=== PATIENT | male | born 1945 | race Caucasian/White ===

== ENCOUNTER → 2018-10-18 | Outpatient (CLI) | payer OTHER ==
[~2018-10-18] MED LIST: ASPI81TA50 PO; ATOR20TA58 PO; CITA10TA4 PO; LISI1TAB5 PO; OMEP20CA10 PO; TAMS0.4C97 PO
--- NOTE | 2018-10-18 22:24 | PAIN ---
DATE OF SERVICE: 10/18/2018 INITIAL CONSULTATION FOR PAIN CLINIC CHIEF COMPLAINT: Low back and right lower extremity pain. HISTORY OF PRESENT ILLNESS: This is a 73-year-old male who presents with history of pain in low back, right leg for about 4 weeks, increasing. He has had some low back pain over the years, , but has not been this severe, has not been radiating down into his right leg. The patient reports he was at a local store, was kneeling down and has some difficulty trying to get back up and he has severe pain in the back and into the leg at that time and had to have assistance from 4 people to get him up and back to his feet. The patient reports that it has never happened before, has not happened since that time, is about a month ago. The patient reports the pain now is decreased to some extent from that point. At that point, he was unable to bear weight on it. The patient reports he has pain now that is sharp and shooting, changes during the day, worse with activity, walking, standing for prolonged periods, better with sitting or lying down, is a burning, aching pain in the low back and radiating to the leg and the posterior gluteus, lateral thigh, anterior thigh, medial thigh, and into the posterior thigh as well on the right side only. The patient reports he had a Medrol Dosepak, which did not help significantly. He reports it awakes him from sleep at night occasionally, not every night, does not affect his bowel or bladder control significantly, does not need any assistance with walking, but does affect his ability to walk and he is favoring his right lower extremity. He reports some significant fatigability with activities, better with lying down or sitting, being or riding in the car for more than 20-30 minutes can exacerbate the pain also. The patient did have an MRI scan of the lumbar spine showing some multilevel degenerative disk changes, most significant at L3-L4 with asymmetric bulging greater to the right with a subtle annular fissure in the right paramedian location, mild neural foraminal narrowing seen greater on the right. Also, L4-L5 shows slight bulge with moderate facet degenerative changes noted without stenosis. The patient rates his disability rating from 0-10, 10 being the worst, is a 3 with family home responsibilities, 1 with recreation and social activity, 7 with occupation, 4 with sexual behaviors, 0 with self-care and 4 with life support activities. PAST MEDICAL HISTORY: Significant for hypertension, gastroesophageal reflux, arthritis, anxiety, depression, benign prostatic hypertrophy, sleep apnea, quit smoking many years ago. PREVIOUS SURGERY: Includes cholecystectomy, tonsillectomy, right temporal artery biopsy. CURRENT MEDICATIONS: Include atorvastatin, tamsulosin, lisinopril, citalopram, daily baby aspirin. ALLERGIES: The patient has no known drug allergies. FAMILY HISTORY: Significant for no major medical problems or conditions that he is aware of. SOCIAL HISTORY: The patient drinks alcohol about once a month. Quit smoking many years ago. Does not use any illegal, illicit or recreational drugs. 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 REVIEW OF SYSTEMS: The patient's review of systems is positive for those items mentioned in history of present illness. All systems were reviewed and otherwise negative. It is complete, full and well documented on the patient's chart. PHYSICAL EXAMINATION: VITAL SIGNS: The patient's blood pressure is 151/93, pulse 67, respirations 16, temperature is 98.6 degrees Fahrenheit, height is 5 feet 7 inches, weight is 238 pounds. GENERAL: The patient is awake, alert, oriented, appropriate, has a very pleasant demeanor. HEENT: Shows normocephalic, atraumatic. Extraocular movements are intact and symmetrical. Oral cavity shows mucous membranes moist and pink. Dentition is intact. NECK: Shows anterior throat supple without palpable lymphadenopathy noted. Swallow reflex is symmetrical. CHEST: Shows normal with inspection. Breath sounds are clear to auscultation bilaterally. HEART: Shows S1, S2 clear. No murmurs auscultated. ABDOMEN: Obese: Soft, nontender, nondistended. No palpable organomegaly is noted. No rebound or guarding demonstrated. MUSCULOSKELETAL: Back shows spine grossly in the midline with some moderate tenderness and some mild flattening of the lumbar lordotic curvature. Paraspinous musculature shows symmetrical on inspection; with palpation shows some moderate tenderness diffusely bilaterally, but only diffusely without significant radiation. The patient has good rotational motion of lumbar spine, both laterally as well as forward flexion, rearward extension without exacerbation of pain. The patient's lower extremities show deep tendon reflexes at 2+ in the patellar, 1+ tendo-calcaneus tendons. Motor exam is strong with 5/5 dorsiflexion, extension, quadriceps and hamstring flexion approximately 4 on a scale of 5 on the right, but 5/5 on the left. Peripheral pulses are 1+ posterior tibia. No peripheral edema is noted. No clubbing or cyanosis. Lower extremities are warm and dry to touch, equal in color and appearance. Straight leg raise noted to be negative for reproduction of radicular symptoms bilaterally. Gaenslen and Carlo maneuvers are negative bilaterally as well. The patient is able to stand, stand on his toes without difficulty or loss of balance, walks with a normal appearing gait for a short distance in the office today without any assistive devices. SKIN: Shows warm and dry, good turgor. No edema. No sores, rashes or bruising throughout. IMPRESSION: 1. This is a 73-year-old male with radicular pain in the low back, right lower extremity in L3-L4 dermatomal distribution. 2. MRI scan of lumbar spine as noted. 3. Hypertension. 4. Arthritis. PLAN: Options were discussed with the patient including conservative medical management, physical therapy, interventional techniques. As he has done physical therapies in the past and is doing some stretching and strengthening exercises on his own and continues to do this and is trying to walk daily despite the pain, he would like to pursue interventional techniques. We discussed a lumbar epidural steroid injection using description as well as anatomical models to describe the procedure. The patient will return to clinic once preauthorization is obtained. We will plan on lumbar epidural steroid injection, translaminar approach at the L3-L4 level at that time for his right-sided L3-L4 radiculopathy. In the meantime, the patient will maintain his activity as tolerated, stretching and strengthening exercises as well as walking. CESILIA SABILLON MD DR: JULIANO/aditi JOB#: [id number] / [id number] RIKI Porras
== END | disposition home or self-care (01) ==
LOC: PNCL 11:09
PROVIDERS: ATTEND Anesthesiology
DX: M54.5 Low back pain (principal); M79.604 Pain in right leg; M19.90 Unspecified osteoarthritis, unspecified site; I10 Essential (primary) hypertension; K21.9 Gastro-esophageal reflux disease without esophagitis; N40.0 Benign prostatic hyperplasia without lower urinary tract symptoms; Z87.891 Personal history of nicotine dependence; Z90.49 Acquired absence of other specified parts of digestive tract; Z98.890 Other specified postprocedural states
CPT/HCPCS: G0463

== ENCOUNTER → 2018-11-05 | Outpatient (CLI) | payer OTHER ==
[~2018-11-05] MED LIST changes: +IOHEXOL 180 MG/ML 10 ML VIAL. ONE; +methylPREDNISolone ACETATE 40 MG/ML VIAL. ONE; +methylPREDNISolone ACETATE 80 MG/ML VIAL. ONE
--- NOTE | 2018-11-05 10:38 | PAIN ---
DATE OF SERVICE: 11/05/2018 PROGRESS NOTE FOR PAIN CLINIC DIAGNOSIS: Lumbar radiculopathy with lumbar degenerative disk disease. HISTORY OF PRESENT ILLNESS: The patient is a 73-year-old male, who returns for followup status post initial evaluation and preauthorization with his insurance provider for lumbar epidural steroid injection. ____ obtained; thus would like to proceed; still pain in the low back, right lower extremity as it was previously in the posterior hip, gluteus, lateral thigh, anterior thigh, medial thigh, medial lower leg into the knee as well on the right side. The patient reports it is worse with walking, standing, changing positions, rates it at 8 on a scale of 10 over the past week at its worst, 6 on average and 2 at its least and is a 2 today. The patient reports it is aching and sharp, burning, radiating, and becoming constant with standing. The patient reports it is better with sitting or lying down, does not awaken him from sleep at night. No new motor or sensory deficits, no new bowel or bladder incontinence or other complaints. PHYSICAL EXAMINATION: VITAL SIGNS: The patient's blood pressure is 120/50, pulse is 68, respirations 18, temperature is 98.0 degrees Fahrenheit, height is 5 feet 7 inches, and weight is 233 pounds. GENERAL: The patient is awake, alert, oriented, appropriate, very pleasant demeanor. HEENT: Head shows normocephalic, atraumatic. Extraocular movements are intact and symmetrical. Oral cavity, mucous membranes are moist and pink. Dentition is intact. NECK: Shows anterior throat is supple without palpable lymphadenopathy noted. Swallow reflex is symmetrical. CHEST: Shows normal on inspection. Breath sounds are clear to auscultation bilaterally. HEART: Shows S1 and S2 clear. No murmurs auscultated. ABDOMEN: Soft, nontender, nondistended. No palpable organomegaly is noted. No rebound or guarding demonstrated. BACK: Shows spine is grossly midline. Normal appearing thoracic kyphosis, some minor flattening of lumbar lordotic curvature. Lumbar paraspinous muscle shows symmetrical on inspection and on palpation shows some moderate tenderness diffusely, but only diffusely bilaterally without radiation. EXTREMITIES: The patient's lower extremities show deep tendon reflexes at 2+ in the patellar, 1+ tendo-calcaneus tendons. Motor exam is strong with 5/5 dorsiflexion, extension, quadriceps and hamstring flexion symmetrical. Peripheral pulses are 1+ posterior tibial. No peripheral edema is noted bilaterally. Options were discussed with the patient. The patient's old chart was reviewed as well as his current medication regimen updated. Current review of systems updated today as well. We will proceed with a lumbar epidural steroid injection today with fluoroscopic guidance. Risks were again discussed including, but not limited to bleeding, infection, possibility of epidural hematoma, subsequent neurologic compromise, dural puncture, headaches, spinal cord and/or nerve damage, side effects of steroid medication and poor results regarding pain control. The patient understands and wished to proceed. The patient will return to clinic in approximately 2 weeks for followup, was counseled as to return appointment, activity level and side effects to be aware of. DIAGNOSIS: Lumbar radiculopathy with lumbar degenerative disk disease. PROCEDURE: Lumbar epidural steroid injection, translaminar approach at L3-L4 level using C-arm fluoroscopic guidance under sterile prep and drape using local anesthetic. MEDICATION INJECTED: A total of 120 mg Depo-Medrol plus 10 mL of preservative-free normal saline and 2 mL of contrast. CONDITION AT DISCHARGE: Stable. The patient tolerated procedure well, had no complications. CESILIA SABILLON MD DR: JULIANO/aditi JOB#: [id number] / [id number]
== END ==
LOC: PNCL 07:51
PROVIDERS: ATTEND Anesthesiology
DX: M51.16 Intervertebral disc disorders with radiculopathy, lumbar region (principal); Z79.82 Long term (current) use of aspirin
CPT/HCPCS: 62323; J1030; J1040; Q9965

== ENCOUNTER → 2018-11-19 | Outpatient (CLI) | payer OTHER ==
[~2018-11-19] MED LIST changes: -IOHEXOL 180 MG/ML 10 ML VIAL. ONE; -methylPREDNISolone ACETATE 40 MG/ML VIAL. ONE; -methylPREDNISolone ACETATE 80 MG/ML VIAL. ONE
--- NOTE | 2018-11-19 10:12 | PAIN ---
DATE OF SERVICE: 11/19/2018 DIAGNOSES: Lumbar radiculopathy with lumbar degenerative disk disease. CHIEF COMPLAINT: The patient is a 73-year-old male who returns for followup status post lumbar epidural steroid injection x 1. The patient reports about 90% improvement in the low back and right lower extremity. The patient reports doing very well for the past 3 weeks. The patient reports some pain with bending over, but otherwise doing fairly well, has increased activity, distance walking, doing work and household activities with greater ease and comfort, traveling with greater ease as well. The patient reports it is across the low back into the right lower extremity, right anterolateral thigh, anterior medial thigh, medial knee as well on the right side, radiating to the right leg and across the low back, occasionally on the left, mostly on the right side. The patient reports no loss of motor function. He has stumbled a few times, but has not fallen or his legs give out on him. The patient reports the pain is sharp and a compressed feeling in the back and radiating into the leg, is becoming more noticeable with time. The patient reports it is a 4 on a scale of 10 at its worst, 4 on average and 0 at its least and is a 4 today. The patient reports no new motor or sensory deficits, no new bowel or bladder incontinence or other complaints. PHYSICAL EXAMINATION: VITAL SIGNS: The patient's blood pressure 134/81, pulse 70, respirations 18, temperature 97.8 degrees Fahrenheit, ____ weight is 238 pounds. GENERAL: The patient is awake, alert, oriented, appropriate, very pleasant demeanor. HEENT: Head is normocephalic, atraumatic. Extraocular movements are intact and symmetrical. Oral cavity: Mucous membranes moist and pink. Dentition is intact. NECK: Shows anterior throat supple without palpable lymphadenopathy noted. Swallow reflex symmetrical. CHEST: Shows normal on inspection. Breath sounds clear to auscultation bilaterally. HEART: Shows S1, S2 clear. No murmurs auscultated. ABDOMEN: Soft, nontender, nondistended. No palpable organomegaly is noted. No rebound or guarding demonstrated. BACK: Shows spine grossly in the midline. Normal appearing thoracic kyphosis and minor flattening of lumbar lordotic curvature. Lumbar paraspinous muscle shows symmetrical on inspection, with palpation shows some moderate tenderness diffusely bilaterally, but only diffusely without significant radiation. The patient has good rotational motion of lumbar spine, both laterally greater than 10 degrees right and left as well as extension greater than 10 degrees, forward flexion 45 degrees without difficulty or pain reported. EXTREMITIES: The patient's lower extremities show deep tendon reflexes at 2+ in the patellar, 1+ tendo-calcaneus tendons are equal. Motor exam is strong with 5/5 dorsiflexion and extension, symmetrical. Peripheral pulses are 1+ posterior tibial. No peripheral edema is noted. Options were discussed with the patient. The patient's old chart was reviewed as well as his current medication regimen updated. Current review of systems updated today as well. We will preauthorize the patient for a second lumbar epidural steroid injection. He did very well for the first and still some radicular pain at L3-4 dermatomal distribution on the right. We will plan on lumbar epidural steroid injection at the L3-L4 level, translaminar approach after approval. The patient will continue with stretching and strengthening exercises, maintain walking activities as tolerated as he is currently doing. The patient will return to clinic for lumbar epidural steroid injection in approximately 2 weeks and plan on repeat at that time. CESILIA SABILLON MD DR: JLUIANO/aditi JOB#: [id number] / [id number]
== END | disposition home or self-care (01) ==
LOC: PNCL 07:48
PROVIDERS: ATTEND Anesthesiology
DX: M51.16 Intervertebral disc disorders with radiculopathy, lumbar region (principal)
CPT/HCPCS: G0463

== ENCOUNTER → 2018-12-17 | Outpatient (CLI) | payer OTHER ==
[~2018-12-17] MED LIST changes: +IOHEXOL 180 MG/ML 10 ML VIAL. ONE; +methylPREDNISolone ACETATE 40 MG/ML VIAL. ONE; +methylPREDNISolone ACETATE 80 MG/ML VIAL. ONE
--- NOTE | 2018-12-17 09:10 | PAIN ---
DATE OF SERVICE: 12/17/2018 PROGRESS NOTE FOR PAIN CLINIC DIAGNOSIS: Lumbar radiculopathy with lumbar degenerative disk disease. HISTORY OF PRESENT ILLNESS: The patient is a 73-year-old male who returns for followup status post lumbar epidural steroid injection x 1 with very good results about 90% improvement preauthorized for second injection today. Would like to proceed with this as the pain has been returning in the low back and right lower extremity. The patient reports it is worse with walking, standing, changing positions, better with sitting or lying down, does not awaken him from sleep at night. The patient reports pain in the last week has been a 6 on a scale of 10 at its worst, 3 on average, 0 at its least and is a 3 today. The patient reports it is aching and sharp at times in the low back and more on the right side than the left, but present bilaterally. The patient reports no new motor or sensory deficits, no new bowel or bladder incontinence or other complaints. PHYSICAL EXAMINATION: VITAL SIGNS: The patient's blood pressure 141/84, pulse 59, respirations 18, temperature is 97.8 degrees Fahrenheit. Height is 5 feet 7 inches, weight is 241 pounds. GENERAL: The patient is awake, alert, oriented, appropriate, very pleasant demeanor. HEENT: Shows normocephalic, atraumatic. Extraocular movements are intact and symmetrical. Oral cavity: Mucous membranes are moist and pink. Dentition is intact. NECK: Shows anterior throat supple without palpable lymphadenopathy noted. Swallow reflex is symmetrical. CHEST: Shows normal on inspection. Breath sounds clear to auscultation bilaterally. HEART: Shows S1, S2 clear. No murmurs auscultated. ABDOMEN: Soft, nontender, nondistended. No palpable organomegaly is noted. No rebound or guarding demonstrated. BACK: Shows spine grossly in the midline. Slight exaggeration of thoracic kyphosis, some minor flattening of lumbar lordotic curvature. Lumbar paraspinous muscle shows symmetrical with inspection, with palpation shows some moderate tenderness diffusely in the low lumbar distribution, but only diffusely without radiation. The patient has good rotational motion of lumbar spine, both laterally as well as extension and flexion without difficulty. EXTREMITIES: Lower extremities show deep tendon reflexes 2+ in the patellar, 1+ tendo-calcaneus tendons and are equal. Motor exam is strong with 5/5 dorsiflexion, extension, quadriceps and hamstring flexion and symmetrical bilaterally. Peripheral pulses are 1+ posterior tibia. No peripheral edema is noted. Options were discussed with the patient. The patient's old chart was reviewed and his current medication regimen updated. Current review of systems updated today as well. We will proceed with a second in the series of lumbar epidural steroid injection today with fluoroscopic guidance. Risks were again discussed including, but not limited to bleeding, infection, possibility of epidural hematoma, subsequent neurological compromise, dural puncture headache, spinal cord and/or nerve damage, side effects of steroid medication and poor results regarding pain control. The patient understands and wished to proceed. The patient will return to clinic in approximately 2 weeks for followup, was counseled on return appointment, activity level and side effects to be aware of. DIAGNOSIS: Lumbar radiculopathy with lumbar degenerative disk disease. PROCEDURE: Lumbar epidural steroid injection, translaminar approach at the L3-L4 level using C-arm fluoroscopic guidance under sterile prep and drape using local anesthetic. MEDICATION INJECTED: A total of 120 mg Depo-Medrol plus 10 mL of preservative-free normal saline and 2 mL of contrast. CONDITION AT DISCHARGE: Stable. The patient tolerated the procedure well, had no complications. CESILIA SABILLON MD DR: JULIANO/nts JOB#: [id number] / [id number]
== END ==
LOC: PNCL 07:57
PROVIDERS: ATTEND Anesthesiology
DX: M51.16 Intervertebral disc disorders with radiculopathy, lumbar region (principal); Z79.82 Long term (current) use of aspirin
CPT/HCPCS: 62323; J1030; J1040; Q9965

== ENCOUNTER → 2018-12-31 | Outpatient (CLI) | payer OTHER ==
[~2018-12-31] MED LIST changes: -IOHEXOL 180 MG/ML 10 ML VIAL. ONE; -methylPREDNISolone ACETATE 40 MG/ML VIAL. ONE; -methylPREDNISolone ACETATE 80 MG/ML VIAL. ONE
--- NOTE | 2019-01-01 02:20 | PAIN ---
DATE OF SERVICE: 12/31/2018 PROGRESS NOTE FOR PAIN CLINIC DIAGNOSES: Lumbar radiculopathy with lumbar degenerative disk disease. HISTORY OF PRESENT ILLNESS: The patient is a 73-year-old male who returns for followup status post lumbar epidural steroid injection x 2. The patient reports about 65% improvement initially after the second injection, not quite as much as after the first injection was about 90% but still significant pain in the left greater than right lower extremity radiating across the back and the lower extremity, posterior gluteus, lateral thigh, anterior thigh, medial thigh, especially on the left side and medial lower leg in a radicular fashion. The patient reports it is sharp, shooting pain and it is on and off in intensity, better with sitting or lying down, does not awaken him from sleep at night and worse with standing, walking, changing positions and moving. The patient reports it is a 6 on a scale of 10 at its worst in the past week, 4 on average, 1 at its least and is a 4 today. The patient reports no new motor or sensory deficits and no new bowel or bladder incontinence or other complaints but still some significant pain again more on the left side than the right following an L3-L4 dermatomal distribution as previously. PHYSICAL EXAMINATION: VITAL SIGNS: The patient's blood pressure 131/72, pulse 66, respirations 18 and temperature 98.1 degrees Fahrenheit. Height is 5 feet 7 inches and weight is 239 pounds. GENERAL: The patient is awake, alert, oriented, appropriate and very pleasant demeanor. HEENT: Head is normocephalic and atraumatic. Extraocular movements are intact and symmetrical. Oral cavity, mucous membranes are moist and pink. Dentition intact. NECK: Shows anterior throat supple without palpable lymphadenopathy noted. Swallow reflex symmetrical. CHEST: Shows normal on inspection. Breath sounds clear to auscultation bilaterally. HEART: Shows S1 and S2 clear. No murmurs auscultated. ABDOMEN: Soft, nontender and nondistended. No palpable organomegaly is noted. No rebound or guarding demonstrated. BACK: Shows spine grossly in the midline. Normal appearing thoracic kyphosis and some minor flattening of lumbar lordotic curvature. Lumbar paraspinous muscle shows symmetrical on inspection with palpation shows some moderate tenderness in the inferior aspect of the lumbar paraspinous musculature only but without significant radiation. The patient has good rotational motion of the lumbar spine, both laterally as well as extension and flexion without significant pain reported. EXTREMITIES: The patient's lower extremities show deep tendon reflexes at 2+ in the patellar, 1+ tendo-calcaneus tendons. Motor exam is strong with dorsiflexion, extension, quadriceps and hamstring flexion and equal bilaterally. Peripheral pulses are 1+ posterior tibia. No peripheral edema is noted. Options were discussed with the patient. The patient's old chart was reviewed as well as his current medication regimen updated. Current review of systems updated today as well. We will proceed with preauthorization for a third lumbar epidural steroid injection. He did very well after the first 2, again with pain returning in a radicular pattern in the left L3-L4 dermatomal distribution. We will plan on lumbar epidural steroid injection, translaminar approach, L3-L4 level on his return. In the meantime, we will try Medrol Dosepak. The patient was given instruction as well as side effects to be aware of with the medication. The patient will follow up as scheduled for next lumbar epidural steroid injection. CESILIA SABILLON MD DR: JULIANO/aditi JOB#: [id number] / [id number]
== END | disposition home or self-care (01) ==
LOC: PNCL 07:54
PROVIDERS: ATTEND Anesthesiology
DX: M51.16 Intervertebral disc disorders with radiculopathy, lumbar region (principal)
CPT/HCPCS: G0463

== ENCOUNTER → 2019-01-21 | Outpatient (CLI) | payer OTHER ==
[~2019-01-21] MED LIST changes: +IOHEXOL 180 MG/ML 10 ML VIAL. ONE; +methylPREDNISolone ACETATE 40 MG/ML VIAL. ONE; +methylPREDNISolone ACETATE 80 MG/ML VIAL. ONE
--- NOTE | 2019-01-21 09:46 | PAIN ---
DATE OF SERVICE: 01/21/2019 PROGRESS NOTE FOR PAIN CLINIC DIAGNOSIS: Lumbar radiculopathy with lumbar degenerative disk disease. HISTORY OF PRESENT ILLNESS: The patient is a 73-year-old male who returns for followup status post lumbar epidural steroid injections x 2. The patient is waiting for preauthorization for third injection. He has acquired that now and would like to proceed. The patient reports still pain in the low back, somewhat worse on the right than the left at this time, but present bilaterally with pain radiating to the lower extremities, essentially resolved at this time. The patient reports just in the low back now and is radiating, aching, sharp, radiating across the low back, but not into the legs as much. The patient reports it is 7 on a scale of 10 at its worst in the past week, 4 on average, 4 at its least and is a 4 today. The patient reports no new motor or sensory deficits, no new bowel or bladder incontinence or other complaints. PHYSICAL EXAMINATION: VITAL SIGNS: The patient's blood pressure 132/65, pulse 61, respirations are 18, temperature 97.8 degrees Fahrenheit, height is 5 feet 7 inches, weight is 243 pounds. GENERAL: The patient is awake, alert, oriented, appropriate, very pleasant demeanor. HEENT: Head shows normocephalic, atraumatic. Extraocular movements are intact and symmetrical. Oral cavity: Mucous membranes moist and pink. Dentition is intact. NECK: Shows anterior throat supple without palpable lymphadenopathy noted. Swallow reflex symmetrical. CHEST: Shows normal on inspection. Breath sounds clear to auscultation bilaterally. HEART: Shows S1, S2 clear. No murmurs auscultated. ABDOMEN: Soft, nontender, nondistended. No palpable organomegaly is noted. No rebound or guarding demonstrated. BACK: Shows spine grossly in the midline. Normal appearing thoracic kyphosis and some slight flattening of lumbar lordotic curvature. Lumbar paraspinous muscle shows symmetrical, with palpation shows some moderate tenderness but only in the lower lumbar distribution, but only diffusely without radiation. The patient has good rotational motion of lumbar spine, both laterally as well as extension and flexion without difficulty. EXTREMITIES: Lower extremities show deep tendon reflexes 2+ in the patellar, 1+ tendo-calcaneus tendons. Motor exam is strong with 5/5 dorsiflexion, extension and equal bilaterally. Peripheral pulses are 1+. No peripheral edema is noted. Options were discussed with the patient. The patient's old chart was reviewed as his current medication regimen updated. Current review of systems updated today as well. We will proceed with a third in a series of lumbar epidural steroid injection today with fluoroscopic guidance. Risks were again discussed including, but not limited to bleeding, infection, possibility of epidural hematoma, subsequent neurologic compromise, dural puncture, headaches, spinal cord and/or nerve damage, side effects of steroid medication and poor results regarding pain control. The patient understands and wished to proceed. The patient will return to clinic in approximately 2 weeks for followup. He was counseled as to return appointment, activity level, and side effects to be aware of. DIAGNOSIS: Lumbar radiculopathy with lumbar degenerative disk disease. PROCEDURE: Lumbar epidural steroid injection, translaminar approach at L3-L4 level using C-arm fluoroscopic guidance under sterile prep and drape using local anesthetic. MEDICATIONS INJECTED: The patient received a total of 120 mg Depo-Medrol plus 10 mL of preservative-free normal saline and 2 mL of contrast. CONDITION AT DISCHARGE: Stable. The patient tolerated procedure well, had no complications. CESILIA SABILLON MD DR: JULIANO/aditi JOB#: [id number] / [id number]
== END ==
LOC: PNCL 08:24
PROVIDERS: ATTEND Anesthesiology
DX: M51.16 Intervertebral disc disorders with radiculopathy, lumbar region (principal)
CPT/HCPCS: 62323; J1030; J1040; Q9965

== ENCOUNTER 2019-02-07 17:01 | Emergency (ER) | payer OTHER ==
[~2019-02-07] VITALS: Ht 170.2 cm; Wt 107.0 kg
[~2019-02-07 17:01] MED LIST changes: -IOHEXOL 180 MG/ML 10 ML VIAL. ONE; +LISI1TAB19 PO; -LISI1TAB5 PO; -methylPREDNISolone ACETATE 40 MG/ML VIAL. ONE; -methylPREDNISolone ACETATE 80 MG/ML VIAL. ONE
[2019-02-07 17:16] VITALS: BP 138/65
[2019-02-07] MEDS ORDERED: MORPHINE SULFATE 10 MG/ML VIAL. IM ONE (17:30)
[2019-02-07] MEDS ORDERED: diazePAM 5 MG TABLET PO ONE (17:30)
[2019-02-07] MEDS ORDERED: predniSONE 10 MG TABLET PO ONE (17:30)
[2019-02-07] MEDS ORDERED: METH4TAB2 PO (17:39)
[2019-02-07] MEDS ORDERED: CYCL10TA2 PO (17:39)
[2019-02-07] MEDS ORDERED: HYDR-3164 PO (17:39)
--- NOTE | 2019-02-07 17:39 | PHYS DOC ---
Past Medical History Past Medical History: High Cholesterol, Hypertension, Sciatica, Other Additional Past Medical Histor: CHRONIC BACK PAIN Past Surgical History: Cholecystectomy Alcohol Use: Rarely Drug Use: None Adult General Chief Complaint Chief Complaint: BACK PAIN OR INJURY HPI HPI Patient is a 73 year old male with history of hypertension, high cholesterol, sciatica, who presents to the ED today complaining of exacerbation of chronic low back pain. Patient states for the last 2 days his had increased bilateral low back pain radiating to the right lower extremity. Denies any known injury. Describes the pain as burning and intermittent worse on certain movements. He states he was seen by the pain clinic and they did injections to his lumbar spine 2 weeks ago, patient states he did not attain any relief. He states his pain clinic doctor was planning to start him on steroids but he called his office today and they did not return his call. Patient denies any loss of bowel/bladder function. He also states he has tried taking 3 tablets of baby aspirin's with no relief Review of Systems Review of Systems Constitutional: Denies fever or chills [] GI: Denies abdominal pain, nausea, vomiting, bloody stools or diarrhea [] : Denies dysuria or hematuria [] Musculoskeletal: Reports low back pain Integument: Denies rash or skin lesions [] Neurologic: Denies headache, focal weakness or sensory changes [] All other systems were reviewed and found to be within normal limits, except as documented in this note. Current Medications Current Medications Current Medications Medications (Trade) Dose Ordered Sig/Amanda Start Time Stop Time Status Last Admin Dose Admin Diazepam (Valium) 5 mg 1X ONCE 02/07/19 17:30 02/07/19 17:31 DC Morphine Sulfate (Morphine Sulfate) 5 mg 1X ONCE 02/07/19 17:30 02/07/19 17:31 DC Prednisone (Prednisone) 50 mg 1X ONCE 02/07/19 17:30 02/07/19 17:31 DC Allergies Allergies Allergies Coded Allergies Type Severity Reaction Last Updated Verified No Known Drug Allergies 10/18/18 No Physical Exam Physical Exam Constitutional: Well developed, well nourished, no acute distress, non-toxic appearance. [] Abdomen: Bowel sounds normal, soft, no tenderness, no masses, no pulsatile masses. [] Skin: Warm, dry, no erythema, no rash. [] Back: Diffuse paraspinal muscle tenderness bilateral lumbar spine, no midline lumbar spine tenderness, no CVA tenderness. [] Extremities: No tenderness, no cyanosis, no clubbing, ROM intact, no edema. [] Neurologic: Alert and oriented X 3, normal motor function, normal sensory function, no focal deficits noted. [] Psychologic: Affect normal, judgement normal, mood normal. [] Current Patient Data Vital Signs Vital Signs Date Time Temp Pulse Resp B/P (MAP) Pulse Ox O2 Delivery O2 Flow Rate FiO2 02/07/19 17:16 98.1 69 20 138/65 (89) 100 Room Air 98.1 EKG EKG [] Radiology/Procedures Radiology/Procedures [] Course & Med Decision Making Course & Med Decision Making Pertinent Labs and Imaging studies reviewed. (See chart for details) This is a 73-year-old male patient who presents to the ED today with exacerbation of chronic low back pain, symptoms have gotten worse in the last 2 days, no known injury, no cauda equina syndrome symptoms. Patient was offered pain relief in the ED and discharged with short supply of pain medicine. He follows up with the pain clinic. Dragon Disclaimer Dragon Disclaimer This electronic medical record was generated, in whole or in part, using a voice recognition dictation system. Departure Departure Impression: Primary Impression: Low back pain Disposition: 01 HOME, SELF-CARE Condition: STABLE Referrals: RIKI SADLER (PCP) Follow-up with your primary care doctor as well as the pain clinic Patient Instructions: Back Pain, Adult, [id number] Additional Instructions: You were evaluated in the emergency room for back pain, we highly recommend you continue following up with the pain clinic and your primary care dcotor. Take the prescribed medications as ordered. Do not drive or operate machinery on the muscle relaxer nor the pain medications. Scripts Methylprednisolone (MEDROL) 4 Mg Tab.ds.pk 1 PKG PO UD, #1 PKG Prov: [employer] 02/07/19 Hydrocodone/Apap 5-325 (NORCO 5-325 TABLET) 1 Each Tablet 1 TAB PO Q6HRS, #12 TAB Prov: [employer] 02/07/19 Cyclobenzaprine Hcl (CYCLOBENZAPRINE HCL) 10 Mg Tablet 1 TAB PO TID, #30 TAB Prov: [employer] 02/07/19 Problem Qualifiers Primary Impression: Low back pain Chronicity: chronic Back pain laterality: bilateral Sciatica presence: with sciatica Sciatica laterality: sciatica of right side Qualified Codes: M54.41 - Lumbago with sciatica, right side; G89.29 - Other chronic pain BUNNY SALAS APRN Feb 07, 2019 17:39
== END 2019-02-07 18:06 | disposition home or self-care (01) ==
LOC: ER 17:01
DX: M54.41 Lumbago with sciatica, right side (principal); G89.29 Other chronic pain; E78.00 Pure hypercholesterolemia, unspecified; I10 Essential (primary) hypertension; Z90.49 Acquired absence of other specified parts of digestive tract
CPT/HCPCS: 96372; 99283; J2270; J7512

== ENCOUNTER → 2021-03-28 | Outpatient (CLI) | payer MEDICARE ==
[~2021-03-28] MED LIST changes: +ATOR40TA59 PO; +CHOL10004 PO; -CITA10TA4 PO; +CITA10TA5 PO; +CYCL10TA19 PO; +EMPA10TA PO; +HYDR-3164 PO; -LISI1TAB19 PO; +LISI1TAB37 PO; +LISI5TAB15 PO; +LORA10TA3 PO; +METH4TAB2 PO; +OMEG1CAP27 PO; -OMEP20CA10 PO; +OMEP20CA16 PO; +OXYB5TAB10 PO
--- NOTE | 2021-03-28 10:55 | KCIC ---
MRI BRAIN WO Date: 03/28/2021 9:35 AM Indication: HEADACHE. Pt states similar experience yrs ago but normal MRI. Pt states localized head pain in right jainism for one mth. No trauma. Comparison: None. Technique: Multiplanar multisequence MRI of the brain was performed without intravenous contrast usin g the standard protocol. Findings: No acute infarct. No acute or chronic hemorrhage. The ventricles are normal in size and configuration without hydrocephalus. Mild scattered FLAIR hyperintensities in the subcortical and periventricular deep white matter, a nonspecific finding, most commonly seen with chronic small vessel ischemic disea se. The scalp and calvarium are normal. The pituitary and sella are normal. No Chiari malformation. The v isualized upper cervical spine is normal. The visualized orbits and globes are normal. The visualized paranasal sinuses are clear. The mastoid air cells are clear. Normal flow voids within the vertebral, basilar, and internal carotid arteries indicating patency. IMPRESSION: 1. No acute infarct, hemorrhage, mass, or hydrocephalus. 2. Mild scattered FLAIR hyperintensities in the subcortical and periventricular deep white matter, a nonspecific finding, most commonly seen with chronic small vessel ischemic disease. Electronically signed by: Scotty Ng MD (03/28/2021 10:53 AM) [facility]
== END ==
LOC: KCIC MRI 09:17
PROVIDERS: ATTEND Nurse Practitioner Family
DX: R51.9 Headache, unspecified (principal)
CPT/HCPCS: 70551

== ENCOUNTER 2021-04-08 12:35 | Observation (INO) | payer MEDICARE ==
[~2021-04-08] VITALS: Ht 170.2 cm; Wt 107.4 kg
[~2021-04-08 12:35] MED LIST changes: -ATOR40TA59 PO; -CHOL10004 PO; -EMPA10TA PO; -LISI5TAB15 PO; -LORA10TA3 PO; -OMEG1CAP27 PO; -OXYB5TAB10 PO
--- NOTE | 2021-04-08 12:50 | PHYS DOC ---
Past Medical History Past Medical History: High Cholesterol, Hypertension, Sciatica, Other Additional Past Medical Histor: CHRONIC BACK PAIN Past Surgical History: Cholecystectomy Smoking Status: Never Smoker Alcohol Use: Rarely Drug Use: None General Adult EDM: Chief Complaint: CHEST PAIN HPI: HPI: Patient is a 75 year old male here presents with midsternal and left-sided chest pain which began about an hour to an hour and a half prior to arrival, while he was carrying groceries the pain radiated down his left arm. He reports "a little" shortness of breath. He reports nausea and mild dizziness. He denies diaphoresis. He denies vomiting. He denies abdominal pain. He took an antacid and aspirin at home prior to arrival, and he reports that his pain is improved but not resolved. He reports a history of previous frequent chest pain, for which she saw cardiology, and he has had 2 cardiac catheterizations, which were reportedly negative, though these procedures occurred greater than 10 years ago. He denies recent surgery, denies recent travel, denies recent hospitalization. He denies lower extremity pain or swelling. He denies cough, hemoptysis, fevers or chills. Review of Systems: Review of Systems: Constitutional: Denies fever or chills. [] HENT: Denies nasal congestion or sore throat. [] Respiratory: Denies cough or hemoptysis. Reports mild shortness of breath. Cardiovascular: Reports chest pain. Denies peripheral edema. Denies syncope. GI: Denies abdominal pain. Reports mild nausea, no vomiting.blas. [] Musculoskeletal: Denies back pain or joint pain. [] Integument: Denies rash. [] Neurologic: He does report mild headache, which she has had previously, unchanged today. Denies focal weakness, denies syncope. Psychiatric: Denies depression or anxiety. [] Heart Score: C/O Chest Pain: Yes HEART Score for Chest Pain: HEART Score for Chest Pain Response (Comments) Value History Highly Suspicious 2 ECG Nonspecific Repolarizatio 1 Age > 65 2 Risk Factors >3 Risk Factors or Hx CAD 2 Troponin < Normal Limit 0 Total 7 Risk Factors: Risk Factors: DM, Current or recent (<one month) smoker, HTN, HLP, family history of CAD, obesity. Risk Scores: Score 0 - 3: 2.5% MACE over next 6 weeks - Discharge Home Score 4 - 6: 20.3% MACE over next 6 weeks - Admit for Clinical Observation Score 7 - 10: 72.7% MACE over next 6 weeks - Early Invasive Strategies Allergies: Allergies: Allergies Coded Allergies Type Severity Reaction Last Updated Verified No Known Drug Allergies 10/18/18 No Physical Exam: PE: Constitutional: Well developed, well nourished, no acute distress, non-toxic appearance. [] HENT: Normocephalic, atraumatic, mucous membranes are moist. Eyes: Sclera clear, anicteric Neck: Trachea midline, no JVD, no tenderness Cardiovascular:Heart rate regular rhythm, +2 radial and posterior tibial pulses bilaterally, warm and well-perfused appearing Lungs & Thorax: Bilateral breath sounds clear to auscultation, equal chest rise, no rales, rhonchi or wheezes. Mildly decreased breath sounds in bilateral bases. Abdomen: Abdomen soft, nondistended, nontender to palpation, no palpable mass organomegaly. No palpable pulsatile mass. Skin: Warm, dry, no erythema, no rash. [] Back: No tenderness, no CVA tenderness. [] Extremities: No tenderness, no cyanosis, no clubbing, ROM intact, no edema. No calf tenderness. Neurologic: Alert and oriented X 3, normal motor function, normal sensory function, no focal deficits noted. Speech is clear and fluent. No facial asymmetry. He ambulates with a steady gait. Psychologic: Affect normal, judgement normal, mood normal. [] EKG: EKG: EKG interpreted at 1246 Rhythm is sinus Rate is 61 bmp Marked artifact No STEMI Radiology/Procedures: Radiology/Procedures: IMAGING REPORT Signed PATIENT: QUINCY WONG CACCOUNT: [id number] : 1945 LOCATION: ER AGE: 75 SEX: M EXAM STATUS: PRE ER ORD. PHYSICIAN: MARITZA CLIFFORD DO REASON: chest pain PROCEDURE: PORTABLE CHEST 1V XR CHEST 1V CLINICAL INDICATIONS: Reason: chest pain / Spl. Instructions: / History: COMPARISON: None available. Findings: Poor lung volumes are seen bilaterally. Perihilar interstitial thickening is seen along with increased radiodensity of the medial lung bases bilaterally. This could be related to poor inspiration and atelectasis but bilateral pulmonary edema or lung infiltrate cannot be excluded. There is blunting of both lateral costophrenic angles which could be due to lipomatosis given the patient's larger body habitus or small pleural effusions. Heart size and mediastinum and pulmonary vasculature are unremarkable otherwise. IMPRESSION: Difficult examination given the patient's larger body habitus and poor lung volumes. Small pleural effusions versus pleural thickening with lipomatosis. Medial bibasilar lung infiltrates versus atelectasis. Perihilar interstitial thickening may be related to poor inspiration as well or mild interstitial pulmonary edema if there is clinical finding of rales. Repeat PA and lateral chest x-ray may be helpful. Electronically signed by: Nhan Mei MD (04/08/2021 1:34 PM) [id number] DICTATED and SIGNED BY: NHAN MEI MD DATE: 04/08/21 [id number] 0 Course & Med Decision Making: Course & Med Decision Making Pertinent Labs and Imaging studies reviewed. (See chart for details) The patient has already had aspirin at home. He requested Tylenol for his headache, so this is given. He initially declined nitroglycerin, but he reports that his pain returned slightly when he got up to ambulate, so this was ordered. His blood pressure is somewhat improved. His troponin is negative. His EKG is nonspecific. He has multiple risk factors. Heart score 7. I have recommended admission and cardiology consultation. He is comfortable with this plan of care. He is accepted for admission by Dr. Cline. Jessica Disclaimer: Jessica Disclaimer: This electronic medical record was generated, in whole or in part, using a voice recognition dictation system. Departure Departure Impression: Primary Impression: Chest pain Disposition: ADMITTED INPATIENT Admitting Physician: MIREILLE Condition: STABLE Referrals: ASHER GARCIA APRN (PCP) MARITZA CLIFFORD DO Apr 08, 2021 12:50
[2021-04-08] MEDS ORDERED: NITROGLYCERIN SUBLINGUAL 0.4 MG BOTTLE OF 25. SL PRN (13:15)
[2021-04-08 13:35] LABS: BASO # 0.1 x10^3/uL (0.0-0.2); BASO % 1 % (0-3); EOS # 0.2 x10^3/uL (0.0-0.7); EOS % 3 % (0-3); HEMATOCRIT 41.3 % (39.0-53.0); HEMOGLOBIN 14.1 g/dL (13.0-17.5); LYMPH # 2.6 x10^3/uL (1.0-4.8); LYMPH % 32 % (24-48); MEAN CORPUSCULAR HEMOGLOBIN 29 pg (25-35); MEAN CORPUSCULAR HGB CONC 34 g/dL (31-37); MEAN CORPUSCULAR VOLUME 86 fL (79-100); MONO # 0.8 x10^3/uL (0.0-1.1); MONO % 10 % (0-9); NEUT # 4.5 x10^3/uL (1.8-7.7); NEUT % 55 % (31-73); PLATELET COUNT 198 x10^3/uL (140-400); RED BLOOD COUNT 4.82 x10^6/uL (4.30-5.70); RED CELL DISTRIBUTION WIDTH 13.1 % (11.5-14.5); WHITE BLOOD COUNT 8.1 x10^3/uL (4.0-11.0)
--- NOTE | 2021-04-08 13:36 | RAD ---
XR CHEST 1V CLINICAL INDICATIONS: Reason: chest pain / Spl. Instructions: / History: COMPARISON: None available. Findings: Poor lung volumes are seen bilaterally. Perihilar interstitial thickening is seen along wit h increased radiodensity of the medial lung bases bilaterally. This could be related to poor inspirat ion and atelectasis but bilateral pulmonary edema or lung infiltrate cannot be excluded. There is lyndsey nting of both lateral costophrenic angles which could be due to lipomatosis given the patient's large r body habitus or small pleural effusions. Heart size and mediastinum and pulmonary vasculature are u nremarkable otherwise. IMPRESSION: Difficult examination given the patient's larger body habitus and poor lung volumes. Smal l pleural effusions versus pleural thickening with lipomatosis. Medial bibasilar lung infiltrates faviola nel atelectasis. Perihilar interstitial thickening may be related to poor inspiration as well or mild interstitial pulmonary edema if there is clinical finding of rales. Repeat PA and lateral chest x-ra y may be helpful. Electronically signed by: Avery Mei MD (04/08/2021 1:34 PM) [id number]
[2021-04-08 13:37] LABS: CALCIUM 9.2 mg/dL (8.5-10.1); CREATININE 1.1 mg/dL (0.7-1.3); GFR 65.6; POTASSIUM 4.4 mmol/L (3.5-5.1)
[2021-04-08 13:43] LABS: ALBUMIN 3.8 g/dL (3.4-5.0); ALBUMIN/GLOBULIN RATIO 0.9 (1.0-1.7); MAGNESIUM 2.2 mg/dL (1.8-2.4); TOTAL BILIRUBIN 0.7 mg/dL (0.2-1.0)
--- NOTE | 2021-04-08 14:38 | EKG ---
[facility] [address] [place] [address] Test Date: 2021-04-08 Test Time: 12:42:50 Pat Name: QUINCY WONG Department: Room: Gender: M [employer] Marketing Associate: : 1945 Requested By: MARITZA CLIFFORD Order Number: [id number] Reading MD: Ed Key MD Measurements Intervals [place] Rate: 61 P: TN: QRS: 14 QRSD: 94 T: 115 QT: 414 QTc: 422 Interpretive Statements SINUS RHYTHM NON-SPECIFIC ST/T CHANGES Electronically Signed On 04-10-2021 13:59:24 [employer]OUSTICAL INSTALLER by Ed Key MD
[2021-04-08] MEDS ORDERED: ACETAMINOPHEN 500 MG TABLET PO ONE (15:00)
[2021-04-08 15:02] LABS: BILIRUBIN,URINE NEGATIVE (NEG); CLARITY,URINE CLEAR; COLOR,URINE YELLOW; NITRITE,URINE NEGATIVE (NEG); PH,URINE 6.5 (<5.0-8.0); PROTEIN,URINE NEGATIVE (NEG-TRACE); UROBILINOGEN,URINE 0.2 mg/dL (0.2 mg/dL)
[2021-04-08 15:17] LABS: BACTERIA,URINE 0 /HPF (0-FEW); RBC,URINE 0 /HPF (0-2); WBC,URINE 0 /HPF (0-4)
[2021-04-08] MEDS ORDERED: ONDANSETRON PF 4 MG/2 ML VIAL. IVP PRN (15:30)
[2021-04-08] MEDS ORDERED: MORPHINE SULFATE 4 MG/ML INJ. IVP PRN (15:30)
[2021-04-08 19:00] VITALS: BP 134/65
[2021-04-08] MEDS ORDERED: EMPA10TA PO (20:12)
[2021-04-08] MEDS ORDERED: OXYB5TAB10 PO (20:12)
[2021-04-08] MEDS ORDERED: CHOL10004 PO (20:15)
[2021-04-08] MEDS ORDERED: LORA10TA3 PO (20:15)
[2021-04-08] MEDS ORDERED: OMEG1CAP27 PO (20:15)
[2021-04-08] MEDS ORDERED: LISI5TAB15 PO (20:15)
--- NOTE | 2021-04-08 20:16 | PDOC1 ---
History and Physical Date of Admission Date of Admission DATE: 04/08/21 TIME: 20:10 Source Source: Chart review, Patient History of Present Illness History of Present Illness MR. Goodwin, is a 75 year old male admit for chest pain. New midsternal and left-sided chest pain. He was not worried, he has had three negative cath in his life, all were GERD pain relaed. pain today, 8/10, mid chest with burning, then pain to left arm and pain to left jaw. 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 Past Medical History Cardiovascular: HTN Pulmonary: No pertinent hx GI: GERD Heme/Onc: No pertinent hx Psych: No pertinent hx Musculoskeletal: low back pain Rheumatologic: No pertinent hx ENT: No pertinent hx Renal/: No pertinent hx Past Surgical History Past Surgical History: No pertinent history Family History Family History: No Significant Family History: Other (he never met his bio father) Social History Smoke: No ALCOHOL: rare (1 per month) Current Problem List Problem List Problems Medical Problems: (1) Chest pain Status: Acute Current Medications Current Medications Current Medications Nitroglycerin (Nitrostat) 0.4 mg PRN Q5MIN PRN SL CHEST PAIN Last administered on 04/08/21at 15:00; Start 04/08/21 at 13:15 Acetaminophen (Tylenol) 1,000 mg 1X ONCE PO Last administered on 04/08/21at 15:00; Start 04/08/21 at 15:00; Stop 04/08/21 at 15:01; Status DC Ondansetron HCl (Zofran) 4 mg PRN Q8HRS PRN IVP NAUSEA/VOMITING; Start at 15:30; Stop 04/09/21 at 15:29 Morphine Sulfate (Morphine Sulfate) 4 mg PRN Q4HRS PRN IVP chest pain; Start 04/08/21 at 15:30 Aspirin (Ecotrin) 81 mg DAILY PO ; Start 04/09/21 at 09:00 Atorvastatin Calcium (Lipitor) 20 mg QHS PO ; Start 04/08/21 at 21:00 Citalopram Hydrobromide (CeleXA) 10 mg DAILY PO ; Start 04/09/21 at 09:00 Cyclobenzaprine HCl (Flexeril) 10 mg TID PO ; Start 04/08/21 at 21:00 Acetaminophen/ Hydrocodone Bitart (Lortab 5/325) 1 tab Q6HRS PO ; Start 04/09/21 at 00:00 Tamsulosin HCl (Flomax) 0.4 mg DAILY PO ; Start 04/09/21 at 09:00 Lisinopril (Prinivil) 20 mg DAILY PO ; Start 04/09/21 at 09:00 Pantoprazole Sodium (Protonix) 40 mg DAILYAC PO ; Start 04/09/21 at 07:30 Hydrochlorothiazide (Microzide) 12.5 mg DAILY PO ; Start 04/09/21 at 09:00 Active Scripts Active Medrol (Methylprednisolone) 4 Mg Tab.ds.pk 1 Pkg PO UD [place] 5-325 Tablet (Acetaminophen/Hydrocodone Bitart) 1 Each Tablet 1 Tab PO Q6HRS Cyclobenzaprine Hcl 10 Mg Tablet 1 Tab PO TID Reported Citalopram Hbr (Citalopram Hydrobromide) 10 Mg Tablet 1 Tab PO DAILY Aspir-Low (Aspirin) 81 Mg Tablet.dr 1 Tab PO DAILY Omeprazole 20 Mg Capsule.dr 1 Cap PO DAILY Lisinopril-Hctz 20-12.5 Mg Tab (Lisinopril/Hydrochlorothiazide) 1 Each Tablet 1 Tab PO DAILY Flomax (Tamsulosin Hcl) 0.4 Mg Cap.er.24h 1 Cap PO DAILY Atorvastatin Calcium 20 Mg Tablet 1 Tab PO DAILY Allergies Allergies: Coded Allergies: No Known Drug Allergies (Unverified , 10/18/18) ROS General: No: Night Sweats, Fatigue, Malaise, Appetite, Other PSYCHOLOGICAL ROS: No: Anxiety, Behavioral Disorder, Concentration difficultie, Decreased libido, Depression, Disorientation, Hallucinations, Hostility, Irritablity, Memory difficulties, Mood Swings, Obsessive thoughts, Physical abuse, Sexual abuse, Sleep disturbances, Suicidal ideation, Other Eyes: No Blurry vision, No Decreased vision, No Double vision, No Dry eyes, No Excessive tearing, No Eye Pain, No Itchy Eyes, No Loss of vision, No Photophobia, No Scotomata, No Uses contacts, No Uses glasses, No Other Respiratory: No: Cough, Hemoptysis, Orthopnea, Pleuritic Pain, Shortness of breath, SOB with excertion, Sputum Changes, Stridor, Tachypnea, Wheezing, Other Cardiovascular: yes Chest Pain Gastrointestinal: No Nausea, No Vomiting, No Abdominal Pain, No Diarrhea, No Constipation, No Melena, No Hematochezia, No Other Genitourinary: No Dysuria, No Frequency, No Incontinence, No Hematuria, No Retention, No Discharge, No Urgency, No Pain, No Flank Pain, No Other, No , No , No , No , No , No , No Musculoskeletal: No Gait Disturbance, No Joint Pain, No Joint Stiffness, No Joint Swelling, No Muscle Pain, No Muscular Weakness, No Pain In:, No Swelling In:, No Other Neurological: No Behavorial Changes, No Bowel/Bladder ControlChng, No Confu kris, No Dizziness, No Gait Disturbance, No Headaches, No Impaired Coord/balance, No Memory Loss, No Numbness/Tingling, No Seizures, No Speech Problems, No Tremors, No Visual Changes, No Weakness, No Other Skin: No Dry Skin, No Eczema, No Hair Changes, No Lumps, No Mole Changes, No Mottling, No Nail Changes, No Pruritus, No Rash, No Skin Lesion Changes, No Oth er, No Acne Physical Exam General: Alert, Oriented X3, Cooperative HEENT: Atraumatic, PERRLA Lungs: Clear to auscultation Heart: S1S2, RRR, no thrills, no murmurs Abdomen: Normal bowel sounds, Soft (obese) Rectal Exam: not examined Extremities: No clubbing, No edema, Normal pulses Skin: No rashes, No significant lesion Neuro: Normal speech, Normal tone, Sensation intact Psych/Mental Status: Mental status NL, Mood NL Vitals Vitals Vital Signs Date Time Temp Pulse Resp B/P (MAP) Pulse Ox O2 Delivery O2 Flow Rate FiO2 04/08/21 17:50 83 18 157/75 (102) 90 Room Air 04/08/21 12:52 98.5 98.5 Labs Labs Laboratory Tests Test 04/08/21 13:14 04/08/21 13:29 04/08/21 14:50 04/08/21 15:00 White Blood Count 8.1 x10^3/uL (4.0-11.0) Red Blood Count 4.82 x10^6/uL (4.30-5.70) Hemoglobin 14.1 g/dL (13.0-17.5) Hematocrit 41.3 % (39.0-53.0) Mean Corpuscular Volume 86 fL (79-100) Mean Corpuscular Hemoglobin 29 pg (25-35) Mean Corpuscular Hemoglobin Concent 34 g/dL (31-37) Red Cell Distribution Width 13.1 % (11.5-14.5) Platelet Count 198 x10^3/uL (140-400) Neutrophils (%) (Auto) 55 % (31-73) Lymphocytes (%) (Auto) 32 % (24-48) Monocytes (%) (Auto) 10 % (0-9) Eosinophils (%) (Auto) 3 % (0-3) Basophils (%) (Auto) 1 % (0-3) Neutrophils # (Auto) 4.5 x10^3/uL (1.8-7.7) Lymphocytes # (Auto) 2.6 x10^3/uL (1.0-4.8) Monocytes # (Auto) 0.8 x10^3/uL (0.0-1.1) Eosinophils # (Auto) 0.2 x10^3/uL (0.0-0.7) Basophils # (Auto) 0.1 x10^3/uL (0.0-0.2) Troponin I High Sensitivity 5 ng/L (4-75) FG-Rct-M-Type Natriuretic Peptide 34 pg/mL (0-124) Sodium Level 135 mmol/L (136-145) Potassium Level 4.4 mmol/L (3.5-5.1) Chloride Level 99 mmol/L (98-107) Carbon Dioxide Level 25 mmol/L (21-32) Anion Gap 11 (6-14) Blood Urea Nitrogen 22 mg/dL (8-26) Creatinine 1.1 mg/dL (0.7-1.3) Estimated GFR (Cockcroft-Gault) 65.6 BUN/Creatinine Ratio 20 (6-20) Glucose Level 127 mg/dL (70-99) Calcium Level 9.2 mg/dL (8.5-10.1) Magnesium Level 2.2 mg/dL (1.8-2.4) Total Bilirubin 0.7 mg/dL (0.2-1.0) Aspartate Amino Transf (AST/SGOT) 41 U/L (15-37) Alanine Aminotransferase (ALT/SGPT) 53 U/L (16-63) Alkaline Phosphatase 56 U/L (46-116) Total Protein 8.0 g/dL (6.4-8.2) Albumin 3.8 g/dL (3.4-5.0) Albumin/Globulin Ratio 0.9 (1.0-1.7) Lipase 77 U/L (73-393) Urine Collection Type Unknown Urine Color Yellow Urine Clarity Clear Urine pH 6.5 (<5.0-8.0) Urine Specific [place] >=1.030 (1.000-1.030) Urine Protein Negative mg/dL (NEG-TRACE) Urine Glucose (UA) >=1000 mg/dL (NEG) Urine Ketones (Stick) Trace mg/dL (NEG) Urine Blood Negative (NEG) Urine Nitrite Negative (NEG) Urine Bilirubin Negative (NEG) Urine Urobilinogen Dipstick 0.2 mg/dL (0.2 mg/dL) Urine Leukocyte Esterase Negative (NEG) Urine RBC 0 /HPF (0-2) Urine WBC 0 /HPF (0-4) Urine Bacteria 0 /HPF (0-FEW) Urine Mucus Slight /LPF SARS-CoV-2 Antigen (Rapid) Negative (NEGATIVE) Test 04/08/21 17:20 Troponin I High Sensitivity 5 ng/L (4-75) Laboratory Tests Test 04/08/21 13:14 04/08/21 13:29 04/08/21 14:50 04/08/21 15:00 White Blood Count 8.1 x10^3/uL (4.0-11.0) Red Blood Count 4.82 x10^6/uL (4.30-5.70) Hemoglobin 14.1 g/dL (13.0-17.5) Hematocrit 41.3 % (39.0-53.0) Mean Corpuscular Volume 86 fL (79-100) Mean Corpuscular Hemoglobin 29 pg (25-35) Mean Corpuscular Hemoglobin Concent 34 g/dL (31-37) Red Cell Distribution Width 13.1 % (11.5-14.5) Platelet Count 198 x10^3/uL (140-400) Neutrophils (%) (Auto) 55 % (31-73) Lymphocytes (%) (Auto) 32 % (24-48) Monocytes (%) (Auto) 10 % (0-9) Eosinophils (%) (Auto) 3 % (0-3) Basophils (%) (Auto) 1 % (0-3) Neutrophils # (Auto) 4.5 x10^3/uL (1.8-7.7) Lymphocytes # (Auto) 2.6 x10^3/uL (1.0-4.8) Monocytes # (Auto) 0.8 x10^3/uL (0.0-1.1) Eosinophils # (Auto) 0.2 x10^3/uL (0.0-0.7) Basophils # (Auto) 0.1 x10^3/uL (0.0-0.2) Troponin I High Sensitivity 5 ng/L (4-75) OP-Mkt-J-Type Natriuretic Peptide 34 pg/mL (0-124) Sodium Level 135 mmol/L (136-145) Potassium Level 4.4 mmol/L (3.5-5.1) Chloride Level 99 mmol/L (98-107) Carbon Dioxide Level 25 mmol/L (21-32) Anion Gap 11 (6-14) Blood Urea Nitrogen 22 mg/dL (8-26) Creatinine 1.1 mg/dL (0.7-1.3) Estimated GFR (Cockcroft-Gault) 65.6 BUN/Creatinine Ratio 20 (6-20) Glucose Level 127 mg/dL (70-99) Calcium Level 9.2 mg/dL (8.5-10.1) Magnesium Level 2.2 mg/dL (1.8-2.4) Total Bilirubin 0.7 mg/dL (0.2-1.0) Aspartate Amino Transf (AST/SGOT) 41 U/L (15-37) Alanine Aminotransferase (ALT/SGPT) 53 U/L (16-63) Alkaline Phosphatase 56 U/L (46-116) Total Protein 8.0 g/dL (6.4-8.2) Albumin 3.8 g/dL (3.4-5.0) Albumin/Globulin Ratio 0.9 (1.0-1.7) Lipase 77 U/L (73-393) Urine Collection Type Unknown Urine Color Yellow Urine Clarity Clear Urine pH 6.5 (<5.0-8.0) Urine Specific [place] >=1.030 (1.000-1.030) Urine Protein Negative mg/dL (NEG-TRACE) Urine Glucose (UA) >=1000 mg/dL (NEG) Urine Ketones (Stick) Trace mg/dL (NEG) Urine Blood Negative (NEG) Urine Nitrite Negative (NEG) Urine Bilirubin Negative (NEG) Urine Urobilinogen Dipstick 0.2 mg/dL (0.2 mg/dL) Urine Leukocyte Esterase Negative (NEG) Urine RBC 0 /HPF (0-2) Urine WBC 0 /HPF (0-4) Urine Bacteria 0 /HPF (0-FEW) Urine Mucus Slight /LPF SARS-CoV-2 Antigen (Rapid) Negative (NEGATIVE) Test 04/08/21 17:20 Troponin I High Sensitivity 5 ng/L (4-75) VTE Prophylaxis Ordered VTE Prophylaxis Devices: No VTE Pharmacological Prophylaxi: Yes Assessment/Plan Assessment/Plan chest pain, angina, maybe worse with exertion, r/o ACS, consult CV team to risk stratify, obese, BMI 38 htn, chronic, with elevated, add metoprolol GERD, may be pain related depression, stable Justifications for Admission Other Justification LEYLA SILVA MD Apr 08, 2021 20:16
[2021-04-08] MEDS ORDERED: ATOR40TA59 PO (20:17)
[2021-04-08] MEDS ORDERED: METOPROLOL TART IMMED RELEASE 25 MG TABLET. PO ONE (20:45)
[2021-04-08] MEDS ORDERED: CYCLOBENZAPRINE 10 MG TABLET. PO SCH (21:00)
[2021-04-08] MEDS ORDERED: ATORVASTATIN CALCIUM 20 MG TABLET PO SCH (21:00)
[2021-04-08] MEDS ORDERED: HYDROcodone/APAP 5/325MG 1 TAB TABLET PO PRN (22:00)
[2021-04-08 22:55] VITALS: BP 142/67
[2021-04-09] MEDS ORDERED: HYDROcodone/APAP 5/325MG 1 TAB TABLET PO SCH
[2021-04-09 02:47] VITALS: BP 142/80
[2021-04-09 03:37] LABS: CHOLESTEROL/HDL RATIO 5.3
[2021-04-09 07:00] VITALS: BP 164/87
[2021-04-09] MEDS ORDERED: PANTOPRAZOLE 40 MG TABLET.DR. PO SCH (07:30)
[2021-04-09] MEDS ORDERED: ENOXAPARIN 40 MG/0.4 ML SYRINGE. SQ SCH (09:00)
[2021-04-09] MEDS ORDERED: CETIRIZINE HCL 10 MG TABLET. PO SCH (09:00)
[2021-04-09] MEDS ORDERED: CHOLECALCIFEROL (VITAMIN D3) 1,000 UNIT TABLET PO SCH (09:00)
[2021-04-09] MEDS ORDERED: TAMSULOSIN 0.4 MG CAP.ER.24H. PO SCH (09:00)
[2021-04-09] MEDS ORDERED: ATORVASTATIN CALCIUM 40 MG TABLET. PO SCH (09:00)
[2021-04-09] MEDS ORDERED: CITALOPRAM 10 MG TABLET. PO SCH (09:00)
[2021-04-09] MEDS ORDERED: OMEGA-3 FATTY ACIDS/FISH OIL 1,000 MG CAPSULE. PO SCH (09:00)
[2021-04-09] MEDS ORDERED: hydroCHLOROthiazide 12.5 MG CAPSULE PO SCH (09:00)
[2021-04-09] MEDS ORDERED: OXYBUTYNIN CHLORIDE 5 MG TABLET PO SCH (09:00)
[2021-04-09] MEDS ORDERED: NON FORMULARY ITEM (Empagliflozin (Jardiance) 10 MG) PO SCH (09:00)
[2021-04-09] MEDS ORDERED: LISINOPRIL 20 MG TABLET PO SCH (09:00)
[2021-04-09] MEDS ORDERED: ASPIRIN ENTERIC COATED 81 MG TABLET.DR. PO SCH (09:00)
[2021-04-09] MEDS ORDERED: LISINOPRIL 5 MG TABLET. PO SCH (09:00)
[2021-04-09 11:00] VITALS: BP 154/68
[2021-04-09] MEDS ORDERED: ACETAMINOPHEN 325 MG TABLET. PO ONE (11:45)
--- NOTE | 2021-04-09 11:56 | PDOC3 ---
Discharge Summary Visit Information Date of Admission: Apr 08, 2021 Date of Discharge: Apr 09, 2021 Final Diagnosis chest pain, angina, r/o ACS done, CV team to contact for outpatient testing obese, BMI 37 htn, chronic, with elevated, add metoprolol GERD, may be pain related depression, stable Problems Medical Problems: (1) Chest pain Status: Acute Brief Hospital Course Allergies Allergies Coded Allergies Type Severity Reaction Last Updated Verified No Known Drug Allergies 10/18/18 No Vital Signs Vital Signs Date Time Temp Pulse Resp B/P (MAP) Pulse Ox O2 Delivery O2 Flow Rate FiO2 04/09/21 09:37 60 164/87 04/09/21 07:00 97.0 20 95 Room Air 97.0 Lab Results Laboratory Tests Test 04/08/21 13:14 04/08/21 13:29 04/08/21 14:50 04/08/21 15:00 White Blood Count 8.1 x10^3/uL (4.0-11.0) Red Blood Count 4.82 x10^6/uL (4.30-5.70) Hemoglobin 14.1 g/dL (13.0-17.5) Hematocrit 41.3 % (39.0-53.0) Mean Corpuscular Volume 86 fL (79-100) Mean Corpuscular Hemoglobin 29 pg (25-35) Mean Corpuscular Hemoglobin Concent 34 g/dL (31-37) Red Cell Distribution Width 13.1 % (11.5-14.5) Platelet Count 198 x10^3/uL (140-400) Neutrophils (%) (Auto) 55 % (31-73) Lymphocytes (%) (Auto) 32 % (24-48) Monocytes (%) (Auto) 10 % (0-9) Eosinophils (%) (Auto) 3 % (0-3) Basophils (%) (Auto) 1 % (0-3) Neutrophils # (Auto) 4.5 x10^3/uL (1.8-7.7) Lymphocytes # (Auto) 2.6 x10^3/uL (1.0-4.8) Monocytes # (Auto) 0.8 x10^3/uL (0.0-1.1) Eosinophils # (Auto) 0.2 x10^3/uL (0.0-0.7) Basophils # (Auto) 0.1 x10^3/uL (0.0-0.2) Troponin I High Sensitivity 5 ng/L (4-75) HZ-Irf-Y-Type Natriuretic Peptide 34 pg/mL (0-124) Sodium Level 135 mmol/L (136-145) Potassium Level 4.4 mmol/L (3.5-5.1) Chloride Level 99 mmol/L (98-107) Carbon Dioxide Level 25 mmol/L (21-32) Anion Gap 11 (6-14) Blood Urea Nitrogen 22 mg/dL (8-26) Creatinine 1.1 mg/dL (0.7-1.3) Estimated GFR (Cockcroft-Gault) 65.6 BUN/Creatinine Ratio 20 (6-20) Glucose Level 127 mg/dL (70-99) Calcium Level 9.2 mg/dL (8.5-10.1) Magnesium Level 2.2 mg/dL (1.8-2.4) Total Bilirubin 0.7 mg/dL (0.2-1.0) Aspartate Amino Transf (AST/SGOT) 41 U/L (15-37) Alanine Aminotransferase (ALT/SGPT) 53 U/L (16-63) Alkaline Phosphatase 56 U/L (46-116) Total Protein 8.0 g/dL (6.4-8.2) Albumin 3.8 g/dL (3.4-5.0) Albumin/Globulin Ratio 0.9 (1.0-1.7) Lipase 77 U/L (73-393) Urine Collection Type Unknown Urine Color Yellow Urine Clarity Clear Urine pH 6.5 (<5.0-8.0) Urine Specific [place] >=1.030 (1.000-1.030) Urine Protein Negative mg/dL (NEG-TRACE) Urine Glucose (UA) >=1000 mg/dL (NEG) Urine Ketones (Stick) Trace mg/dL (NEG) Urine Blood Negative (NEG) Urine Nitrite Negative (NEG) Urine Bilirubin Negative (NEG) Urine Urobilinogen Dipstick 0.2 mg/dL (0.2 mg/dL) Urine Leukocyte Esterase Negative (NEG) Urine RBC 0 /HPF (0-2) Urine WBC 0 /HPF (0-4) Urine Bacteria 0 /HPF (0-FEW) Urine Mucus Slight /LPF SARS-CoV-2 Antigen (Rapid) Negative (NEGATIVE) Test 11/12/21 17:20 04/09/21 03:00 04/09/21 03:45 Troponin I High Sensitivity 5 ng/L (4-75) 6 ng/L (4-75) Triglycerides Level 271 mg/dL (0-150) Cholesterol Level 175 mg/dL (0-200) LDL Cholesterol, Calculated 88 mg/dL (0-100) VLDL Cholesterol, Calculated 54 mg/dL (0-40) Non-HDL Cholesterol Calculated 142 mg/dL (0-129) HDL Cholesterol 33 mg/dL (40-60) Cholesterol/HDL Ratio 5.3 Laboratory Tests Test 04/08/21 13:14 04/08/21 13:29 04/08/21 14:50 04/08/21 15:00 White Blood Count 8.1 x10^3/uL (4.0-11.0) Red Blood Count 4.82 x10^6/uL (4.30-5.70) Hemoglobin 14.1 g/dL (13.0-17.5) Hematocrit 41.3 % (39.0-53.0) Mean Corpuscular Volume 86 fL (79-100) Mean Corpuscular Hemoglobin 29 pg (25-35) Mean Corpuscular Hemoglobin Concent 34 g/dL (31-37) Red Cell Distribution Width 13.1 % (11.5-14.5) Platelet Count 198 x10^3/uL (140-400) Neutrophils (%) (Auto) 55 % (31-73) Lymphocytes (%) (Auto) 32 % (24-48) Monocytes (%) (Auto) 10 % (0-9) Eosinophils (%) (Auto) 3 % (0-3) Basophils (%) (Auto) 1 % (0-3) Neutrophils # (Auto) 4.5 x10^3/uL (1.8-7.7) Lymphocytes # (Auto) 2.6 x10^3/uL (1.0-4.8) Monocytes # (Auto) 0.8 x10^3/uL (0.0-1.1) Eosinophils # (Auto) 0.2 x10^3/uL (0.0-0.7) Basophils # (Auto) 0.1 x10^3/uL (0.0-0.2) Troponin I High Sensitivity 5 ng/L (4-75) QX-Tir-T-Type Natriuretic Peptide 34 pg/mL (0-124) Sodium Level 135 mmol/L (136-145) Potassium Level 4.4 mmol/L (3.5-5.1) Chloride Level 99 mmol/L (98-107) Carbon Dioxide Level 25 mmol/L (21-32) Anion Gap 11 (6-14) Blood Urea Nitrogen 22 mg/dL (8-26) Creatinine 1.1 mg/dL (0.7-1.3) Estimated GFR (Cockcroft-Gault) 65.6 BUN/Creatinine Ratio 20 (6-20) Glucose Level 127 mg/dL (70-99) Calcium Level 9.2 mg/dL (8.5-10.1) Magnesium Level 2.2 mg/dL (1.8-2.4) Total Bilirubin 0.7 mg/dL (0.2-1.0) Aspartate Amino Transf (AST/SGOT) 41 U/L (15-37) Alanine Aminotransferase (ALT/SGPT) 53 U/L (16-63) Alkaline Phosphatase 56 U/L (46-116) Total Protein 8.0 g/dL (6.4-8.2) Albumin 3.8 g/dL (3.4-5.0) Albumin/Globulin Ratio 0.9 (1.0-1.7) Lipase 77 U/L (73-393) Urine Collection Type Unknown Urine Color Yellow Urine Clarity Clear Urine pH 6.5 (<5.0-8.0) Urine Specific [place] >=1.030 (1.000-1.030) Urine Protein Negative mg/dL (NEG-TRACE) Urine Glucose (UA) >=1000 mg/dL (NEG) Urine Ketones (Stick) Trace mg/dL (NEG) Urine Blood Negative (NEG) Urine Nitrite Negative (NEG) Urine Bilirubin Negative (NEG) Urine Urobilinogen Dipstick 0.2 mg/dL (0.2 mg/dL) Urine Leukocyte Esterase Negative (NEG) Urine RBC 0 /HPF (0-2) Urine WBC 0 /HPF (0-4) Urine Bacteria 0 /HPF (0-FEW) Urine Mucus Slight /LPF SARS-CoV-2 Antigen (Rapid) Negative (NEGATIVE) Test 04/08/21 17:20 04/09/21 03:00 04/09/21 03:45 Troponin I High Sensitivity 5 ng/L (4-75) 6 ng/L (4-75) Triglycerides Level 271 mg/dL (0-150) Cholesterol Level 175 mg/dL (0-200) LDL Cholesterol, Calculated 88 mg/dL (0-100) VLDL Cholesterol, Calculated 54 mg/dL (0-40) Non-HDL Cholesterol Calculated 142 mg/dL (0-129) HDL Cholesterol 33 mg/dL (40-60) Cholesterol/HDL Ratio 5.3 Brief Hospital Course Mr. Goodwin is a 75 old admit with chest pain with exertion, trop neg x3 lipids OK home meds reviewed seen by Dr. Enriquez from CV team, his office will contact for further testing Discharge Information Condition at Discharge: Improved Follow Up: Weeks Disposition/Orders: D/C to Home Scheduled Aspirin (Aspir-Low) 81 Mg Tablet., 1 TAB PO DAILY for heart health, #30 Ref 3 (Reported) Entered as Reported by: NICHOL ESPARZA on 10/18/18 1232 Last Action: Continued on 04/08/211912 by LEYLA SILVA Atorvastatin Calcium (Atorvastatin Calcium) 40 Mg Tablet, 1 TAB PO DAILY for CHOLESTEROL, #30 Ref 5 (Reported) Entered as Reported by: Rico Adams on 04/08/212016 Last Action: Continued on 04/08/212120 by Rico Adams Cholecalciferol (Vitamin D3) (Vitamin D3 ) 25 Mcg Tablet, 25 MCG PO DAILY for SUPPLEMENT, (Reported) 1,000 UNITS = 25 MCG Entered as Reported by: Rico Adams on 04/08/212014 Last Action: Continued on 04/08/212120 by Rico Adams Citalopram Hydrobromide (Citalopram Hbr) 10 Mg Tablet, 20 MG PO DAILY for anxiety, #30 Ref 3 (Reported) Entered as Reported by: NICHOL ESPARZA on 10/18/18 1232 Last Action: Edited on 04/08/212011 by Rico Adams Empagliflozin (Jardiance) 10 Mg Tablet, 10 MG PO DAILY for diabetes, (Reported) Entered as Reported by: Rico Adams on 04/08/212011 Last Action: Converted on 04/08/212120 by Rico Adams Hydrocodone/Apap 5-325 ([place] 5-325 Tablet) 1 Each Tablet, 1 TAB PO Q6HRS, #12 Prescribed by: Latosha Felder APRN on 02/07/19 1739 Last Action: Continued on 04/08/211912 by LEYLA SILVA Lisinopril (Lisinopril) 5 Mg Tablet, 1 TAB PO DAILY for BLOOD PRESSURE, #30 Ref 5 (Reported) Entered as Reported by: Rico Adams on 04/08/212014 Last Action: Continued on 04/08/212120 by Rico Adams Loratadine (Loratadine) 10 Mg Tablet, 1 TAB PO DAILY for ALLERGIES, #30 Ref 5 (Reported) Entered as Reported by: Rico Adams on 04/08/212014 Last Action: Converted on 04/08/212120 by Rico Adams [place]-3 Fatty Acids/Fish Oil (Fish Oil 1,000 Mg Softgel) 1 Each Capsule, 1 CAP PO TID for cholesterol for 30 Days, #90 Ref 0 (Reported) WITH MEALS Entered as Reported by: Rico Adams on 04/08/212014 Last Action: Converted on 04/08/212120 by Rico Adams Omeprazole (Omeprazole) 20 Mg Capsule.dr, 1 CAP PO DAILY for gerd, #30 Ref 5 (Reported) Entered as Reported by: NICHOL ESPARZA on 10/18/18 1232 Last Action: Converted on 04/08/211912 by LEYLA SILVA Oxybutynin Chloride (Oxybutynin Chloride) 5 Mg Tablet, 10 MG PO BID for urinary frequency, #60 Ref 11 (Reported) Entered as Reported by: Rico Adams on 04/08/212011 Last Action: Continued on 04/08/212120 by Rico Adams Tamsulosin Hcl (Flomax) 0.4 Mg Cap.er.24h, 1 CAP PO DAILY for diff urinating, #30 Ref 11 (Reported) Entered as Reported by: NICHOL ESPARZA on 10/18/18 123 Last Action: Continued on 04/08/211912 by LEYLA SILVA Patient Instructions Patient Instructions obs DC seen face to face, with in room Justicifation of Admission Dx: Justifications for Admission: Justification of Admission Dx: LEYLA Munson MD Apr 09, 2021 11:56
--- NOTE | 2021-04-09 14:07 | PDOC2 ---
CONSULT Date of Consult Date of Consult DATE: 04/09/21 TIME: 14:03 Reason for Consult Reason for Consult: Chest pain Referring Physician Referring Physician: Dr. Cline Identification/Chief Complaint Chief Complaint Chest pain Source Source: Chart review, Patient History of Present Illness Reason for Visit: The patient is a 75-year-old male who presented to the emergency room last evening due to approximately 2 hours of chest discomfort. This discomfort was situated in his mid to left chest area. It was associated with mild shortness of breath and mild nausea. The patient's EKG showed a sinus rhythm with no acute ischemic changes. Chest x-ray showed possible small pleural effusions versus pleural thickening. Initial cardiac enzymes were normal. He does have a history of hypertension hyperlipidemia. He reports at least 2 catheterizations at least 10 years ago with no interventions performed. He has been comfortable overnight and denies chest pain this morning. Past Medical History Cardiovascular: HTN, Hyperlipidemia Pulmonary: No pertinent hx GI: GERD Heme/Onc: No pertinent hx Psych: No pertinent hx Musculoskeletal: low back pain Rheumatologic: No pertinent hx ENT: No pertinent hx Renal/: No pertinent hx Past Surgical History Past Surgical History: No pertinent history Family History Family History: No Significant Social History Social History: Other (he never met his bio father) No ALCOHOL: rare (1 per month) Current Problem List Problem List Problems Medical Problems: (1) Chest pain Status: Acute Current Medications Current Medications Current Medications Nitroglycerin (Nitrostat) 0.4 mg PRN Q5MIN PRN SL CHEST PAIN Last administered on 04/08/21at 15:00; Start 04/08/21 at 13:15; Stop 04/09/21 at 13:11; Status DC Acetaminophen (Tylenol) 1,000 mg 1X ONCE PO Last administered on 04/08/21at 15:00; Start 04/08/21 at 15:00; Stop 04/08/21 at 15:01; Status DC Ondansetron HCl (Zofran) 4 mg PRN Q8HRS PRN IVP NAUSEA/VOMITING; Start 04/08/21 at 15:30; Stop 04/09/21 at 13:11; Status DC Morphine Sulfate (Morphine Sulfate) 4 mg PRN Q4HRS PRN IVP chest pain; Start 04/08/21 at 15:30; Stop 04/09/21 at 13:11; Status DC Aspirin (Ecotrin) 81 mg DAILY PO Last administered on 04/09/21at 09:39; Start 04/09/21 at 09:00; Stop 04/09/21 at 13:11; Status DC Atorvastatin Calcium (Lipitor) 20 mg QHS PO ; Start 04/08/21 at 21:00; Stop 04/08/21 at 22:02; Status DC Citalopram Hydrobromide (CeleXA) 10 mg DAILY PO Last administered on 04/09/21at 09:37; Start 04/09/21 at 09:00; Stop 04/09/21 at 13:11; Status DC Cyclobenzaprine HCl (Flexeril) 10 mg TID PO ; Start 04/08/21 at 21:00; Stop 04/08/21 at 21:59; Status DC Acetaminophen/ Hydrocodone Bitart (Lortab 5/325) 1 tab Q6HRS PO ; Start 04/09/21 at 00:00; Stop 04/08/21 at 21:59; Status DC Tamsulosin HCl (Flomax) 0.4 mg DAILY PO Last administered on 04/09/21at 09:34; Start 04/09/21 at 09:00; Stop 04/09/21 at 13:11; Status DC Lisinopril (Prinivil) 20 mg DAILY PO ; Start 04/09/21 at 09:00; Stop 04/08/21 at 22:02; Status DC Pantoprazole Sodium (Protonix) 40 mg DAILYAC PO Last administered on 04/09/21at 09:39; Start 04/09/21 at 07:30; Stop 04/09/21 at 13:11; Status DC Hydrochlorothiazide (Microzide) 12.5 mg DAILY PO ; Start 04/09/21 at 09:00; Stop 04/09/21 at 13:11; Status DC Metoprolol Tartrate (Lopressor) 25 mg 1X ONCE PO Last administered on 04/08/21at 22:33; Start 04/08/21 at 20:45; Stop 04/08/21 at 20:46; Status DC Enoxaparin Sodium (Lovenox Per Pharmacy Prophylaxis Dosing) 1 each PRN DAILY PRN MC SEE COMMENTS; Start 04/08/21 at 20:30; Stop 04/09/21 at 13:11; Status DC Enoxaparin Sodium (Lovenox 40mg Syringe) 40 mg Q24H SQ ; Start 04/09/21 at 09:00; Stop 04/09/21 at 13:11; Status DC Atorvastatin Calcium (Lipitor) 40 mg DAILY PO Last administered on 04/09/21at 09:34; Start 04/09/21 at 09:00; Stop 04/09/21 at 13:11; Status DC Vitamin D (Vitamin D3) 1,000 unit DAILY PO Last administered on 04/09/21at 09:37; Start 04/09/21 at 09:00; Stop 04/09/21 at 13:11; Status DC Lisinopril (Prinivil) 5 mg DAILY PO Last administered on 04/09/21at 09:37; Start 04/09/21 at 09:00; Stop 04/09/21 at 13:11; Status DC Oxybutynin Chloride (Ditropan) 10 mg BID PO Last administered on 04/09/21at 09:36; Start 04/09/21 at 09:00; Stop 04/09/21 at 13:11; Status DC Non-Formulary Medication (Empagliflozin (Jardiance)) 10 mg DAILY PO ; Start 04/09/21 at 09:00; Stop 04/09/21 at 13:11; Status DC Cetirizine HCl (ZyrTEC) 10 mg DAILY PO Last administered on 04/09/21at 09:37; Start 04/09/21 at 09:00; Stop 04/09/21 at 13:11; Status DC Fish Oil (Fish Oil) 1,000 mg TID PO Last administered on 04/09/21at 09:33; Start 04/09/21 at 09:00; Stop 04/09/21 at 13:11; Status DC Acetaminophen/ Hydrocodone Bitart (Lortab 5/325) 1 tab PRN Q6HRS PRN PO pain; Start 04/08/21 at 22:00; Stop 04/09/21 at 13:11; Status DC Acetaminophen (Tylenol) 650 mg 1X ONCE PO Last administered on 04/09/21at 11:49; Start 04/09/21 at 11:45; Stop 04/09/21 at 11:46; Status DC Active Scripts Active [place] 5-325 Tablet (Acetaminophen/Hydrocodone Bitart) 1 Each Tablet 1 Tab PO Q6HRS Reported Atorvastatin Calcium 40 Mg Tablet 1 Tab PO DAILY Lisinopril 5 Mg Tablet 1 Tab PO DAILY Loratadine 10 Mg Tablet 1 Tab PO DAILY Vitamin D3 (Vitamin D) 25 Mcg Tablet 25 Mcg PO DAILY 1,000 UNITS = 25 MCG Fish Oil 1,000 Mg Softgel (Commack-3 Fatty Acids/Fish Oil) 1 Each Capsule 1 Cap PO TID 30 Days WITH MEALS Oxybutynin Chloride 5 Mg Tablet 10 Mg PO BID Jardiance (Empagliflozin) 10 Mg Tablet 10 Mg PO DAILY Citalopram Hbr (Citalopram Hydrobromide) 10 Mg Tablet 20 Mg PO DAILY Aspir-Low (Aspirin) 81 Mg Tablet.dr 1 Tab PO DAILY Omeprazole 20 Mg Capsule.dr 1 Cap PO DAILY Flomax (Tamsulosin Hcl) 0.4 Mg Cap.er.24h 1 Cap PO DAILY Allergies Allergies: Coded Allergies: No Known Drug Allergies (Unverified , 10/18/18) ROS Respiratory: YES: SOB with excertion Cardiovascular: yes Chest Pain Physical Exam General: No acute distress HEENT: Atraumatic Lungs: Clear to auscultation Heart: Regular rate Abdomen: Normal bowel sounds Vitals VITALS Vital Signs Date Time Temp Pulse Resp B/P (MAP) Pulse Ox O2 Delivery O2 Flow Rate FiO2 04/09/21 11:00 97.7 67 20 154/68 (96) 92 Room Air 97.7 Labs Labs Laboratory Tests Test 04/08/21 13:14 04/08/21 13:29 04/08/21 14:50 04/08/21 15:00 White Blood Count 8.1 x10^3/uL (4.0-11.0) Red Blood Count 4.82 x10^6/uL (4.30-5.70) Hemoglobin 14.1 g/dL (13.0-17.5) Hematocrit 41.3 % (39.0-53.0) Mean Corpuscular Volume 86 fL (79-100) Mean Corpuscular Hemoglobin 29 pg (25-35) Mean Corpuscular Hemoglobin Concent 34 g/dL (31-37) Red Cell Distribution Width 13.1 % (11.5-14.5) Platelet Count 198 x10^3/uL (140-400) Neutrophils (%) (Auto) 55 % (31-73) Lymphocytes (%) (Auto) 32 % (24-48) Monocytes (%) (Auto) 10 % (0-9) Eosinophils (%) (Auto) 3 % (0-3) Basophils (%) (Auto) 1 % (0-3) Neutrophils # (Auto) 4.5 x10^3/uL (1.8-7.7) Lymphocytes # (Auto) 2.6 x10^3/uL (1.0-4.8) Monocytes # (Auto) 0.8 x10^3/uL (0.0-1.1) Eosinophils # (Auto) 0.2 x10^3/uL (0.0-0.7) Basophils # (Auto) 0.1 x10^3/uL (0.0-0.2) Troponin I High Sensitivity 5 ng/L (4-75) MC-Sis-D-Type Natriuretic Peptide 34 pg/mL (0-124) Sodium Level 135 mmol/L (136-145) Potassium Level 4.4 mmol/L (3.5-5.1) Chloride Level 99 mmol/L (98-107) Carbon Dioxide Level 25 mmol/L (21-32) Anion Gap 11 (6-14) Blood Urea Nitrogen 22 mg/dL (8-26) Creatinine 1.1 mg/dL (0.7-1.3) Estimated GFR (Cockcroft-Gault) 65.6 BUN/Creatinine Ratio 20 (6-20) Glucose Level 127 mg/dL (70-99) Calcium Level 9.2 mg/dL (8.5-10.1) Magnesium Level 2.2 mg/dL (1.8-2.4) Total Bilirubin 0.7 mg/dL (0.2-1.0) Aspartate Amino Transf (AST/SGOT) 41 U/L (15-37) Alanine Aminotransferase (ALT/SGPT) 53 U/L (16-63) Alkaline Phosphatase 56 U/L (46-116) Total Protein 8.0 g/dL (6.4-8.2) Albumin 3.8 g/dL (3.4-5.0) Albumin/Globulin Ratio 0.9 (1.0-1.7) Lipase 77 U/L (73-393) Urine Collection Type Unknown Urine Color Yellow Urine Clarity Clear Urine pH 6.5 (<5.0-8.0) Urine Specific [place] >=1.030 (1.000-1.030) Urine Protein Negative mg/dL (NEG-TRACE) Urine Glucose (UA) >=1000 mg/dL (NEG) Urine Ketones (Stick) Trace mg/dL (NEG) Urine Blood Negative (NEG) Urine Nitrite Negative (NEG) Urine Bilirubin Negative (NEG) Urine Urobilinogen Dipstick 0.2 mg/dL (0.2 mg/dL) Urine Leukocyte Esterase Negative (NEG) Urine RBC 0 /HPF (0-2) Urine WBC 0 /HPF (0-4) Urine Bacteria 0 /HPF (0-FEW) Urine Mucus Slight /LPF SARS-CoV-2 RNA (MALACHI) Negative (Negative) SARS-CoV-2 Antigen (Rapid) Negative (NEGATIVE) Test 04/08/21 17:20 04/09/21 03:00 04/09/21 03:45 Troponin I High Sensitivity 5 ng/L (4-75) 6 ng/L (4-75) Triglycerides Level 271 mg/dL (0-150) Cholesterol Level 175 mg/dL (0-200) LDL Cholesterol, Calculated 88 mg/dL (0-100) VLDL Cholesterol, Calculated 54 mg/dL (0-40) Non-HDL Cholesterol Calculated 142 mg/dL (0-129) HDL Cholesterol 33 mg/dL (40-60) Cholesterol/HDL Ratio 5.3 Laboratory Tests Test 04/08/21 14:50 04/08/21 15:00 04/08/21 17:20 04/09/21 03:00 Urine Collection Type Unknown Urine Color Yellow Urine Clarity Clear Urine pH 6.5 (<5.0-8.0) Urine Specific [place] >=1.030 (1.000-1.030) Urine Protein Negative mg/dL (NEG-TRACE) Urine Glucose (UA) >=1000 mg/dL (NEG) Urine Ketones (Stick) Trace mg/dL (NEG) Urine Blood Negative (NEG) Urine Nitrite Negative (NEG) Urine Bilirubin Negative (NEG) Urine Urobilinogen Dipstick 0.2 mg/dL (0.2 mg/dL) Urine Leukocyte Esterase Negative (NEG) Urine RBC 0 /HPF (0-2) Urine WBC 0 /HPF (0-4) Urine Bacteria 0 /HPF (0-FEW) Urine Mucus Slight /LPF SARS-CoV-2 RNA (MALACHI) Negative (Negative) SARS-CoV-2 Antigen (Rapid) Negative (NEGATIVE) Troponin I High Sensitivity 5 ng/L (4-75) Triglycerides Level 271 mg/dL (0-150) Cholesterol Level 175 mg/dL (0-200) LDL Cholesterol, Calculated 88 mg/dL (0-100) VLDL Cholesterol, Calculated 54 mg/dL (0-40) Non-HDL Cholesterol Calculated 142 mg/dL (0-129) HDL Cholesterol 33 mg/dL (40-60) Cholesterol/HDL Ratio 5.3 Test 04/09/21 03:45 Troponin I High Sensitivity 6 ng/L (4-75) Images Images Chest x-ray as above. Assessment/Plan Assessment/Plan 1. Chest pain. Overnight. He has no ischemic EKG changes. Troponin has been normal x3 at 5, 5 and 6. Discussed these results with the patient. I believe the patient may be safely discharged today but will follow up with outpatient stress testing and follow-up. 2. Hypertension. Patient's blood pressure is under better control. Continue present treatment. 3. Hyperlipidemia. Continue statins. 4. Gastroesophageal reflux disease. Continue present treatments and monitoring. LIBERTY DAY MD Apr 09, 2021 14:07
--- NOTE | 2021-04-09 16:09 | NUR ---
Discharge Note: QUINCY WONG [address] Discharge instructions and discharge home medications reviewed with Patient and a copy given. All questions have been answered and understanding verbalized. The following instructions and handouts were given: chest pain IV discontinued, no complications Patient discharged to home with self care All belongings taken home with patient.
== END 2021-04-09 12:30 | disposition home or self-care (01) ==
LOC: ER 12:35 → ED HOLD 14:26 → 6 SOUTH 19:07
PROVIDERS: ADMIT Internal Medicine; ATTEND Internal Medicine
DX: R07.89 Other chest pain (principal); Z20.822 Contact with and (suspected) exposure to COVID-19; I20.9 Angina pectoris, unspecified; I10 Essential (primary) hypertension; M54.50 Low back pain, unspecified; K21.9 Gastro-esophageal reflux disease without esophagitis; E78.00 Pure hypercholesterolemia, unspecified; E78.5 Hyperlipidemia, unspecified; F32.A Depression, unspecified; E66.9 Obesity, unspecified; Z68.38 Body mass index [BMI] 38.0-38.9, adult; Z79.82 Long term (current) use of aspirin; Z90.49 Acquired absence of other specified parts of digestive tract
CPT/HCPCS: 36415; 71045; 80053; 80061; 81001; 83690; 83735; 83880; 84484; 85025; 87426; 93005; 99285; G0378; U0003; U0005; G0379

== ENCOUNTER → 2021-06-27 | Outpatient (CLI) | payer MEDICARE ==
[~2021-06-27] MED LIST changes: +ATOR40TA59 PO; +CHOL10004 PO; +EMPA10TA PO; +IOHEXOL 300 MG/ML 100ML VIAL. IV ONE; +LISI5TAB15 PO; +LORA10TA3 PO; +OMEG1CAP27 PO; +OXYB5TAB10 PO
--- NOTE | 2021-06-27 09:20 | RAD ---
EXAMINATION: Magnetic resonance venography (MRV) of the brain without contrast 06/27/2021 8:15 AM HISTORY: Paroxysmal hemicrania TECHNIQUE: 2-D [id number] magnetic resonance the mammography of intracranial vessels performed wi thout contrast. Maximum intensity projection images are provided. COMPARISON: None available. FINDINGS: Superior sagittal sinus is patent. Transverse sinuses are patent. Sigmoid sinuses and jugular bulbs a re intact. No significant cortical vein thrombosis. Internal cerebral veins and vein of Jeanmarie appear patent. Straight sinus and torcula are patent. IMPRESSION: No findings to suggest intracranial sinus venous thrombosis. Electronically signed by: Chela Aragon MD (06/27/2021 9:18 AM) [id number]
[2021-06-27 09:40] LABS: GFR 73.2
--- NOTE | 2021-06-27 12:09 | RAD ---
STUDY: CT angiography of the head INDICATION: Possible hemicrania COMPARISON: MRI brain 03/28/2021 TECHNIQUE: Axial CT imaging of the head k utilizing angiography protocol and performed after the intr avenous administration of 75 mL Omnipaque 300 contrast. Multiplanar reformats and 3D MIP acquisitions were obtained. Encountered areas of stenosis are measured per NASCET criteria. One or more of the following individualized dose reduction techniques were utilized for this examinat ion: 1. Automated exposure control 2. Adjustment of the mA and/or kV according to patient size 3. Use of iterative reconstruction technique. FINDINGS: Posterior Circulation: Dominant left vertebral artery. Vertebral arteries are patent. There is focal mild narrowing of the intradural right vertebral artery due to a calcification. Left vertebral artery is normal in caliber. Basilar artery, superior cerebellar arteries, and posterior cerebral arteries are normal in caliber and patent. Anterior Circulation: Internal carotid arteries, middle cerebral arteries, and anterior cerebral davis elli are normal in caliber and patent. Mild calcifications in the cavernous internal carotid arteries without significant narrowing. No aneurysm, dissection, stenosis, or occlusion. Veins: Dural venous sinuses and jugular veins are patent. MISCELLANEOUS: Visualized intracranial contents are unremarkable. Globes and orbits are intact. The nasal sinuses an d mastoid air cells are clear. IMPRESSION: No acute arterial abnormality. Electronically signed by: Stephanie Ernst MD (06/27/2021 12:07 PM) [id number]
== END ==
LOC: MRI 08:05
PROVIDERS: ATTEND Psychiatry & Neurology Neurology with Special Qualifications in Child Neurology
DX: I65.01 Occlusion and stenosis of right vertebral artery (principal); I65.29 Occlusion and stenosis of unspecified carotid artery; G44.039 Episodic paroxysmal hemicrania, not intractable
CPT/HCPCS: 36415; 70496; 70544; 82565; Q9967